=== PATIENT | male | born 1995 | race African-American/Black ===

== ENCOUNTER 2017-12-17 10:53 | Emergency (ER) | payer OTHER ==
[~2017-12-17] VITALS: Ht 172.7 cm; Wt 73.0 kg
[2017-12-17 10:58] VITALS: BP 127/80
--- NOTE | 2017-12-17 11:21 | ED EYE COMPLAINT ---
History of Present Illness General Chief Complaint: Eye Problems Stated Complaint: STYE LT EYE Source: patient, old records Exam Limitations: no limitations Vital Signs & Intake/Output Vital Signs & Intake/Output Vital Signs Date Time Temp Pulse Resp B/P B/P Pulse O2 O2 Flow FiO2 Mean Ox Delivery Rate 12/17 1058 98.6 75 18 127/80 98 Room Air Allergies Coded Allergies: No Known Allergies (12/17/17) Reconcile Medications Erythromycin Base (Erythromycin) 5 MG/GRAM (0.5 %) OINT...G. 1 CRUZITO OPH 4XDP STYE apply 1 cm ribbon into the lower conjunctival sac Polytrim (Polytrim Eye Drops) 10,000 UNIT-1 MG/ML DROPS 1 GTT OPH Q6 STYE Triage Note: 22 YO MALE TO TRIAGE C/O ?STYLE TO L EYE X 2 DAYS Triage Nurses Notes Reviewed? yes Onset: Abrupt Duration: day(s): (2), constant Timing: recent history Injury Environment: home Severity: mild Severity Numbers: 3 No Modifying Factors: none Right Eye Associated Symptoms: denies HPI: 22-year-old male presents to the ER for evaluation stating that for the past 5 days he's had a stye however over the past 2 days he's had swelling to his left upper eyelid. He denies any known injury or trauma. No vision changes or redness to his eye he does not or glasses or contacts. He denies any discharge or pain to the eye no recent trauma or foreign body sensation. He is not taken anything for it or sought care until today. Past History Travel History Traveled to [place] past 21 day No Medical History Any Pertinent Medical History? 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 No Review of Systems Review of Systems Constitutional: Reports: see HPI. All Other Systems: Reviewed and Negative Comments Review of systems: See HPI, All other systems negative. Constitutional, no chills no fever, no malaise HEENT: no sore throat no congestion Cardiovascular: No chest pain Skin: no rashes, no change in skin Respiratory: No dyspnea no cough no sputum GI: No nausea no vomiting Muscle skeletal: No joint pain, no back pain Neurologic: , no headache Heme/endocrine: No bruising Physical Exam General Appearance: well developed/nourished General Inspection: stye l upper medial eyelid Eyelid: stye Conjunctiva/Sclera: normal inspection Cornea: normal inspection EOM: intact Pupil: normal accommodation, normal pupil, PERRL General Inspection: normal inspection Eyelid: normal inspection Conjunctiva/Sclera: normal inspection Cornea: normal inspection EOM: intact Pupil: normal accommodation, normal pupil, PERRL Physical Exam Comments: Well-developed well-nourished patient in no apparent distress. Head/Face: Atraumatic, no facial swelling Eyes: PERRL, EOMI, no conjunctival injection. No nystagmus Ear:External auditory canals clear, Nose: atraumatic.Normal inspection Throat: Moist mucous membranes. Neck: Supple, no lymphadenopathy, FROM Back: FROM Respiratory: No respiratory distress. Patient speaking in full complete sentences. Breath sounds clear to auscultation bilaterally: NO W/R/R Extremities: full range of motion Neuro: awake, alert, and oriented to person, place and time. There were no obvious focal neurologic abnormalities. Skin: Warm & dry;No appreciable rash on exposed skin Psych: Mood affect normal, normal memory normal judgment. Progress Differential Diagnosis: corneal abrasion, corneal foreign body, conjunctivitis, hordeolum, chalazion, periorbital vs orbital cellulitis Plan of Care: I discussed with the patient at length all of their results. I had an extensive conversation regarding need for close follow up with their primary care physician this week as well as return precautions. I answered all of their questions, they feel comfortable with the plan and follow-up care. I discussed with the patient the medications that they will receive. I gave them signs and symptoms that could indicate an adverse reaction. I have advised them to limit their activities until they can see how they respond to the medication. Departure Departure Time of Disposition: 1128 Disposition: HOME OR SELF CARE Condition: Stable Clinical Impression Primary Impression: Stye Referrals: Patient Has No Primary Care Dr (PCP/Family) Additional Instructions: POLYTRIM AND ERYTHROMYCIN EYE ANTIBIOTICS DIRECTED. COOL COMPRESSES. FOLLOW UP WITH YOUR PMD, RETURN WITH ANY CONCERNS Departure Forms: Customer Survey General Discharge Information Prescriptions: Current Visit Scripts Polytrim (Polytrim Eye Drops) 1 GTT OPH Q6 #10 ML Erythromycin Base (Erythromycin) 1 CRUZITO OPH 4XDP #3.5 GM apply 1 cm ribbon into the lower conjunctival sac
[2017-12-17] MEDS ORDERED: POLYTRIM EYE DR10 ML OPH (11:32)
[2017-12-17] MEDS ORDERED: ERYTHROMYCIN1 GM OPH (11:32)
== END 2017-12-17 11:56 ==
LOC: ERH 10:53
DX: H00.014 Hordeolum externum left upper eyelid (principal)